=== PATIENT | male | born 1965 | race Caucasian/White ===

== ENCOUNTER 2021-04-09 15:27 | Emergency (ER) | payer SELFPAY | END 2021-04-09 18:10 | disposition home or self-care (01) | LOC: EDBD 15:27 → JD.ED 15:27 | DX: T50.902A Poisoning by unspecified drugs, medicaments and biological substances, intentional self-harm, initial encounter (principal); R41.82 Altered mental status, unspecified; Z72.0 Tobacco use | CPT/HCPCS: 36415; 71045; 71045-26; 80053; 80307; 85025; 99285-25 ==

== ENCOUNTER 2021-06-02 14:50 | Emergency (ER) | payer SELFPAY | END 2021-06-02 16:10 | disposition home or self-care (01) | LOC: JD.ED 14:50 | DX: B00.9 Herpesviral infection, unspecified (principal); R60.0 Localized edema; M62.81 Muscle weakness (generalized); Z72.0 Tobacco use | CPT/HCPCS: 99283 ==

== ENCOUNTER 2021-06-06 09:14 | Emergency (ER) | payer SELFPAY ==
[2021-06-06] MEDS ORDERED: Gabapentin 300 MG Cap PO ONE (10:05)
== END 2021-06-06 10:32 | disposition home or self-care (01) ==
LOC: JD.ED 09:14
DX: B00.1 Herpesviral vesicular dermatitis (principal); Z72.0 Tobacco use
CPT/HCPCS: 99284; A9270; 99283

== ENCOUNTER 2024-11-05 21:24 | Emergency (ER) | payer SELFPAY ==
[2024-11-05] MEDS ORDERED: Sodium Chloride 0.9% 10 ML Syringe FLUSH PRN (21:47)
[2024-11-05 22:13] LABS: BASOPHILS ABSOLUTE AUTO 0.1 K/mm3 (0.0-0.2); BASOPHILS PERCENT AUTO 1.0 % (0.0-1.0); EOSINOPHILS ABSOLUTE AUTO 0.3 K/mm3 (0.0-0.4); EOSINOPHILS PERCENT AUTO 3.3 % (0.0-6.0); IMMATURE GRAN ABSOLUTE AUTO 0.04 K/mm3 (0.00-0.05); IMMATURE GRAN PERCENT AUTO 0.4 % (0.0-0.4); LYMPHOCYTES ABSOLUTE AUTO 1.8 K/mm3 (1.0-4.8); LYMPHOCYTES PERCENT AUTO 18.8 % (24.0-44.0); MEAN PLATELET VOLUME 8.6 fl (9.4-12.4); MONOCYTES ABSOLUTE AUTO 0.6 K/mm3 (0.0-0.8); MONOCYTES PERCENT AUTO 5.9 % (0.0-8.0); NEUTROPHILS ABSOLUTE AUTO 6.7 K/mm3 (1.8-7.7); NEUTROPHILS PERCENT AUTO 70.6 % (41.0-71.0); NRBC ABSOLUTE 0.00 (0.00-0.02); NRBC PERCENT 0.0 % (0.0-0.2); PLATELET COUNT,PLT 264 K/mm3 (150-400); RED BLOOD CELL COUNT 5.04 M/mm3 (4.52-5.90); WHITE BLOOD CELL COUNT,WBC 9.42 K/mm3 (3.9-11.3)
[2024-11-05 22:21] LABS: A/G RATIO 1.3 (1-2); ALANINE AMINOTRANSFERASE,ALT 22.0 U/L (16-63); ASPARTATE AMNIOTRANSFERASE,AST 19.0 U/L (15-37); BILIRUBIN TOTAL 0.5 mg/dL (0.2-1.0); BLOOD UREA NITROGEN,BUN 26.0 mg/dL (7-18); CARBON DIOXIDE,CO2 28.0 mEq/L (21-32); CHLORIDE,CL 103.0 mEq/L (98-107); CREATININE 1.3 mg/dL (0.7-1.3); EST CRCL DRUG DOSING (CG) 59.61 mL/min; ESTIMATED GFR 64.0 mL/min (>60); GLUCOSE RANDOM 83.0 mg/dL (70-99); LACTIC ACID 0.9 mmol/L (0.4-2.0); POTASSIUM,K 5.0 mEq/L (3.5-5.1); PROTEIN TOTAL,TP 7.2 g/dl (6.4-8.2); SODIUM,NA 138.0 mEq/L (136-145); TROPONIN I HIGH SENSITIVITY 7.0 pg/mL (<=76)
[2024-11-05 22:24] LABS: ETHANOL BLOOD MEDICAL 0.0 gm% (0.00)
== END 2024-11-05 23:05 | disposition home or self-care (01) ==
LOC: JD.ED 21:24 → EDBD 21:24 → JD.ED 23:05
DX: R55 Syncope and collapse (principal); F17.200 Nicotine dependence, unspecified, uncomplicated
CPT/HCPCS: 36415; 70450; 80053; 80307; 83605; 83735; 84484; 85025; 93005; 99284; J7030; 93010; 99283